=== PATIENT | male | born 1960 | race Caucasian/White ===

== ENCOUNTER 2018-05-15 06:17 | Day surgery (SDC) | payer OTHER ==
[~2018-05-15 06:17] MED LIST: CIPROFLOXACIN 400MG/D5W 200 ML IVPB
[2018-05-15] MEDS ORDERED: CIPRO 400 MG/200 ML D5W IVPB (07:00)
[2018-05-15] MEDS ORDERED: PROPOFOL 20 ML (07:31)
[2018-05-15] MEDS ORDERED: CEFAZOLIN 1 GM INJ (07:31)
[2018-05-15] MEDS ORDERED: GLYCOPYRROLATE 0.4 MG INJ (07:31)
[2018-05-15] MEDS ORDERED: MIDAZOLAM 1 MG/ML 2 ML INJ (07:31)
[2018-05-15] MEDS ORDERED: FENTAnyl 50 MCG/ML VIAL (07:31)
[2018-05-15] MEDS ORDERED: ROCURONIUM 50 MG INJ (07:31)
[2018-05-15] MEDS ORDERED: NEOSTIGMINE 3 MG/3 ML SYRINGE (07:31)
[2018-05-15] MEDS ORDERED: DEXAMETHASONE 4 MG/ML 1 ML INJ (07:32)
[2018-05-15] MEDS ORDERED: ONDANSETRON 4 MG INJ (07:32)
[2018-05-15] MEDS: IOHEXOL 300MG/ML 30 ML BTL (08:09)
[2018-05-15] MEDS ORDERED: TRIMETHOBENZAMIDE 100 MG/ML VIAL IM (08:30)
[2018-05-15] MEDS ORDERED: ALBUTEROL 0.083% (NEB) 2.5 MG/3 ML AMP HHN (08:30)
[2018-05-15] MEDS ORDERED: MEPERIDINE 25 MG INJ IV (08:30)
[2018-05-15] MEDS ORDERED: EPHEDrine SULFATE 50 MG/5 ML SYG IV (08:30)
[2018-05-15] MEDS ORDERED: OXYCODONE/ACETAMINOPHEN (5/325) TAB PO ×2 (08:30)
[2018-05-15] MEDS ORDERED: DIPHENHYDRAMINE 50 MG INJ IV (08:30)
[2018-05-15] MEDS ORDERED: HYDROmorphONE 1 MG/5 ML IV SYRINGE IV ×2 (08:30)
[2018-05-15] MEDS ORDERED: MIDAZOLAM 1 MG/ML 2 ML INJ IV (08:30)
[2018-05-15] MEDS ORDERED: ONDANSETRON 4 MG INJ IV (08:30)
[2018-05-15] MEDS ORDERED: IPRATROPIUM (NEB) 0.5 MG/2.5 ML AMP HHN (08:30)
[2018-05-15] MEDS ORDERED: hydrALAzine 20 MG INJ IV (08:30)
[2018-05-15] MEDS ORDERED: LABETALOL HCL 20MG INJ IV (08:30)
[2018-05-15] MEDS ORDERED: FENTAnyl 50 MCG/ML VIAL IV ×3 (08:30)
[2018-05-15] MEDS ORDERED: SUGAMMADEX SODIUM 200 MG/2 ML VIAL IV (08:49)
[2018-05-15] MEDS: HYDROmorphONE 1 MG/5 ML IV SYRINGE IV (09:16)
== END 2018-05-15 10:50 | disposition home or self-care (01) ==
LOC: SDS 06:17
DX: N20.0 Calculus of kidney (principal); N40.0 Benign prostatic hyperplasia without lower urinary tract symptoms; G47.30 Sleep apnea, unspecified; E11.42 Type 2 diabetes mellitus with diabetic polyneuropathy; E78.5 Hyperlipidemia, unspecified
CPT/HCPCS: 52356; 82962